=== PATIENT | male | born 1965 | race Caucasian/White ===

== ENCOUNTER 2019-01-25 10:23 | Inpatient (IN) | payer OTHER ==
[~2019-01-25 10:23] MED LIST: CEFAZOLIN 1 GM INJ; SEVOFLURANE 15 MIN
[2019-01-25] MEDS ORDERED: GELATIN SIZE 100 SPONGE (12:00)
[2019-01-25] MEDS ORDERED: POLYMYXIN/BACITRACIN 1L IRRIG (12:00)
[2019-01-25] MEDS ORDERED: ROCURONIUM 50 MG INJ ×3 (12:33→13:27)
[2019-01-25] MEDS ORDERED: MEPERIDINE 100 MG INJ (12:33)
[2019-01-25] MEDS ORDERED: PROPOFOL 20 ML (12:33)
[2019-01-25] MEDS ORDERED: GLYCOPYRROLATE 0.4 MG INJ ×3 (12:33→14:38)
[2019-01-25] MEDS ORDERED: NEOSTIGMINE 3 MG/3 ML SYRINGE ×2 (12:33→14:38)
[2019-01-25] MEDS ORDERED: LIDOCAINE 2% (SDV) 5 ML INJ (12:33)
[2019-01-25] MEDS ORDERED: SUCCINYLCHOLINE CHLORIDE 100 MG/5 ML SYG IV (12:33)
[2019-01-25] MEDS ORDERED: LABETALOL HCL 20MG INJ (13:27)
[2019-01-25] MEDS: BUPIVACAINE 0.5%/EPI (SDV) 30 ML INJ (13:37)
[2019-01-25] MEDS: THROMBIN (BOVINE) 5,000 UNIT VIAL TP (13:38)
[2019-01-25] MEDS: POLYMYXIN/BACITRACIN 1L IRRIG IRR (13:38)
[2019-01-25] MEDS: SURGIFOAM POWDER 1 GM KIT (13:38)
[2019-01-25] MEDS ORDERED: LABETALOL HCL 20MG INJ IV (14:00)
[2019-01-25] MEDS ORDERED: METOCLOPRAMIDE 10 MG INJ IV (14:00)
[2019-01-25] MEDS ORDERED: FENTAnyl 50 MCG/ML VIAL IV ×3 (14:00)
[2019-01-25] MEDS ORDERED: MIDAZOLAM 1 MG/ML 2 ML INJ IV (14:00)
[2019-01-25] MEDS ORDERED: DIPHENHYDRAMINE 50 MG INJ IV ×2 (14:00→15:30)
[2019-01-25] MEDS ORDERED: HYDROmorphONE 1 MG/5 ML IV SYRINGE IV (14:00)
[2019-01-25] MEDS ORDERED: EPHEDrine SULFATE 50 MG/5 ML SYG IV (14:00)
[2019-01-25] MEDS ORDERED: hydrALAzine 20 MG INJ IV (14:00)
[2019-01-25] MEDS: MEPERIDINE 25 MG INJ IV (15:23)
[2019-01-25] MEDS: ONDANSETRON 4 MG INJ IV (15:24)
[2019-01-25] MEDS ORDERED: AL HYDROX/MG HYDROX/SIMETH 30 ML CUP PO (15:30)
[2019-01-25] MEDS ORDERED: NALOXONE (0.4 MG/ML) INJ IV (15:30)
[2019-01-25] MEDS ORDERED: ONDANSETRON 4 MG INJ IV (15:30)
[2019-01-25] MEDS ORDERED: ZOLPIDEM 5 MG TAB PO (15:30)
[2019-01-25] MEDS ORDERED: BISACODYL 10 MG SUPP PR (15:30)
[2019-01-25] MEDS ORDERED: ACETAMINOPHEN 325 MG TAB PO (15:30)
[2019-01-25] MEDS ORDERED: DIPHENHYDRAMINE 25 MG CAP PO (15:30)
[2019-01-25] MEDS ORDERED: HYDROmorphONE 0.5 MG/0.5 ML SYG IV (15:30)
[2019-01-25] MEDS: HYDROmorphONE 1 MG/5 ML IV SYRINGE IV ×3 (15:35→16:38)
[2019-01-25] MEDS: CEFAZOLIN 1 GM/50 ML (PMX) 50 ML IVPB (15:40)
[2019-01-25] MEDS: CEPASTAT LOZENGE MT ×2 (17:54→20:25)
[2019-01-25] MEDS: D5W-0.45 NACL + KCL 20 MEQ 1,000 ML IV (20:19)
[2019-01-25] MEDS: CARISOPRODOL 350 MG TAB PO (20:20)
[2019-01-25] MEDS: DOCUSATE SODIUM 100 MG CAP PO (20:21)
[2019-01-25] MEDS: traMADol 50 MG TAB PO (20:25)
[2019-01-26] MEDS: CEFAZOLIN 1 GM/50 ML (PMX) 50 ML IVPB ×2 (00:01→08:17)
[2019-01-26] MEDS: D5W-0.45 NACL + KCL 20 MEQ 1,000 ML IV ×3 (01:05→20:07)
[2019-01-26 05:27] LABS: ADD MAN DIFF? NO
[2019-01-26 05:33] LABS: BASOPHILS % 0.3 % (0.0-2.0); EOSINOPHILS % 0.1 % (0.0-7.0); HEMATOCRIT 43.1 % (42.0-52.0); LYMPHOCYTES # 2.2 10^3/ul (0.8-2.9); LYMPHOCYTES % 24.1 % (15.0-51.0); MEAN CORPUSCULAR HEMOGLOBIN 33.4 pg (29.0-33.0); MEAN CORPUSCULAR HGB CONC 34.8 g/dl (32.0-37.0); MEAN PLATELET VOLUME 10.1 fl (7.4-10.4); MONOCYTES % 10.7 % (0.0-11.0); NEUTROPHILS % 64.4 % (39.0-77.0); PLATELET COUNT 259 10^3/UL (140-415); RED BLOOD COUNT 4.49 10^6/ul (4.70-6.10); RED CELL DISTRIBUTION WIDTH 11.6 % (11.5-14.5)
[2019-01-26 05:33] LABS: WHITE BLOOD COUNT 9.3 10^3/ul (4.8-10.8)
[2019-01-26] MEDS: PANTOPRAZOLE 40 MG INJ IV (05:50)
[2019-01-26] MEDS: traMADol 50 MG TAB PO ×2 (05:58→22:05)
[2019-01-26 06:20] LABS: ANION GAP 9 (5-13); BLOOD UREA NITROGEN 9 mg/dl (7-20); CALCIUM 8.9 mg/dl (8.4-10.2); CARBON DIOXIDE 26 mmol/L (21-31); CHLORIDE 103 mmol/L (97-110); CREATININE 0.91 mg/dl (0.61-1.24); Estimated GFR > 60 mL/min (>60); GLUCOSE 117 mg/dl (70-220); POTASSIUM 4.6 mmol/L (3.5-5.1); SODIUM 138 mmol/L (135-144)
[2019-01-26] MEDS: DOCUSATE SODIUM 100 MG CAP PO ×2 (09:42→20:06)
[2019-01-26] MEDS: TAMSULOSIN (SR) 0.4 MG CAP PO (09:42)
[2019-01-26 16:44] LABS: ADD UMIC NO; UR ASCORBIC ACID NEGATIVE (NEGATIVE); UR BILIRUBIN (Dip) NEGATIVE (NEGATIVE); UR BLOOD (Dip) NEGATIVE (NEGATIVE); UR CLARITY CLEAR (CLEAR); UR COLOR YELLOW (YELLOW); UR GLUCOSE (Dip) NEGATIVE (NEGATIVE); UR KETONES (Dip) NEGATIVE (NEGATIVE); UR LEUKOCYTE ESTERASE (Dip) NEGATIVE Leu/ul (NEGATIVE); UR NITRITE (Dip) NEGATIVE (NEGATIVE); UR SPECIFIC GRAVITY (Dip) 1.013 (1.003-1.030); UR TOTAL PROTEIN (Dip) NEGATIVE (NEGATIVE); UR UROBILINOGEN (Dip) NEGATIVE (NEGATIVE)
[2019-01-27 04:59] LABS: ADD MAN DIFF? NO
[2019-01-27 05:01] LABS: BASOPHILS % 0.3 % (0.0-2.0); EOSINOPHILS # 0.1 10^3/ul (0.0-0.5); EOSINOPHILS % 0.7 % (0.0-7.0); HEMOGLOBIN 13.8 g/dl (14.0-18.0); LYMPHOCYTES # 3.2 10^3/ul (0.8-2.9); LYMPHOCYTES % 35.2 % (15.0-51.0); MEAN CORPUSCULAR HEMOGLOBIN 33.4 pg (29.0-33.0); MEAN CORPUSCULAR HGB CONC 34.5 g/dl (32.0-37.0); MEAN CORPUSCULAR VOLUME 96.9 fl (82.0-101.0); MEAN PLATELET VOLUME 9.9 fl (7.4-10.4); MONOCYTE # 1.2 10^3/ul (0.3-0.9); MONOCYTES % 13.3 % (0.0-11.0); NEUTROPHIL # 4.6 10^3/ul (1.6-7.5); NEUTROPHILS % 50.1 % (39.0-77.0); PLATELET COUNT 233 10^3/UL (140-415); RED BLOOD COUNT 4.13 10^6/ul (4.70-6.10); RED CELL DISTRIBUTION WIDTH 11.6 % (11.5-14.5)
[2019-01-27 05:01] LABS: WHITE BLOOD COUNT 9.1 10^3/ul (4.8-10.8)
[2019-01-27] MEDS: PANTOPRAZOLE (EC) 40 MG TAB PO (05:13)
[2019-01-27 05:24] LABS: ANION GAP 9 (5-13); BLOOD UREA NITROGEN 12 mg/dl (7-20); CALCIUM 8.7 mg/dl (8.4-10.2); CARBON DIOXIDE 26 mmol/L (21-31); CHLORIDE 102 mmol/L (97-110); CREATININE 1.01 mg/dl (0.61-1.24); Estimated GFR > 60 mL/min (>60); GLUCOSE 108 mg/dl (70-220); MAGNESIUM 2.2 mg/dl (1.7-2.5); PHOSPHORUS 3.2 mg/dl (2.5-4.9); POTASSIUM 4.3 mmol/L (3.5-5.1); SODIUM 137 mmol/L (135-144)
[2019-01-27] MEDS: D5W-0.45 NACL + KCL 20 MEQ 1,000 ML IV ×2 (05:39→17:05)
[2019-01-27] MEDS: DOCUSATE SODIUM 100 MG CAP PO ×2 (08:19→20:37)
[2019-01-27] MEDS: BETHANECHOL 10 MG TAB PO ×3 (08:19→20:37)
[2019-01-27] MEDS: traMADol 50 MG TAB PO ×2 (08:23→20:37)
[2019-01-27 08:58] LABS: PROSTATE SPECIFIC ANTIGEN 0.4 ng/ml (0.0-4.0)
[2019-01-27] MEDS: BETHANECHOL 25 MG TAB PO (21:52)
[2019-01-28] MEDS: D5W-0.45 NACL + KCL 20 MEQ 1,000 ML IV (02:18)
[2019-01-28] MEDS: PANTOPRAZOLE (EC) 40 MG TAB PO (06:19)
[2019-01-28] MEDS: traMADol 50 MG TAB PO (06:24)
[2019-01-28] MEDS: BETHANECHOL 25 MG TAB PO (08:18)
[2019-01-28] MEDS: DOCUSATE SODIUM 100 MG CAP PO (08:18)
[2019-01-28] MEDS: TAMSULOSIN (SR) 0.4 MG CAP PO (08:52)
== END 2019-01-28 12:27 | disposition home or self-care (01) | DRG 518 ==
LOC: REC 10:23 → MS1 17:00
PROC: 0RR30JZ Replacement of Cervical Vertebral Disc with Synthetic Substitute, Open Approach (ICD-10-PCS; principal; 2019-01-25 12:00)
DX: M50.123 Cervical disc disorder at C6-C7 level with radiculopathy (principal); M25.78 Osteophyte, vertebrae; R33.9 Retention of urine, unspecified
CPT/HCPCS: 72050; 80048; 81003; 83735; 84100; 84153; 84154; 85025; 87086; 88304; 97116; 97161